=== PATIENT | female | born 1960 | race Caucasian/White ===

== ENCOUNTER → 2017-01-29 | Outpatient (CLI) | payer BC ==
[~2017-01-29] MED LIST: AMITRIPTYLINE H10 M1 PO; CALCIUM 600600 M2 PO; GUAIFENESI100 MG/51 PO; HCTZ 25MG25 MG PO; LIPITOR 10MG10 MG PO; LISINOPRIL/HCTZ1 TAB PO; MIRALAX17 GM/DOSE PO; PROTONIX 40MG T40 MG PO; VITAMIN B-1000 MCG/T PO
== END ==
LOC: MC.RAD 11:33
DX: Z12.31 Encounter for screening mammogram for malignant neoplasm of breast (principal); N63 Unspecified lump in breast

== ENCOUNTER → 2017-01-31 | Outpatient (CLI) | payer BC | LOC: MC.RAD 12:50 | DX: D48.62 Neoplasm of uncertain behavior of left breast (principal) ==

== ENCOUNTER → 2017-02-06 | Outpatient (CLI) | payer BC | LOC: MC.RAD 09:31 | DX: N60.02 Solitary cyst of left breast (principal) ==

== ENCOUNTER → 2018-02-08 | Outpatient (CLI) | payer BC | LOC: MC.RAD 09:58 | DX: Z12.31 Encounter for screening mammogram for malignant neoplasm of breast (principal) ==

== ENCOUNTER → 2019-02-11 | Outpatient (CLI) | payer BC | LOC: MC.RAD 16:15 | DX: Z12.31 Encounter for screening mammogram for malignant neoplasm of breast (principal) ==

== ENCOUNTER → 2020-01-19 | Outpatient (CLI) | payer BC | LOC: MC.RAD 09:40 | DX: Z12.31 Encounter for screening mammogram for malignant neoplasm of breast (principal); N64.89 Other specified disorders of breast; N60.02 Solitary cyst of left breast ==

== ENCOUNTER → 2020-01-23 | Outpatient (CLI) | payer BC | LOC: MC.RAD 10:27 | DX: N60.02 Solitary cyst of left breast (principal); N64.89 Other specified disorders of breast ==

== ENCOUNTER → 2021-05-31 | Outpatient (CLI) | payer BC | LOC: MC.RAD 11:26 | DX: Z12.31 Encounter for screening mammogram for malignant neoplasm of breast (principal) ==

== ENCOUNTER → 2022-06-01 | Outpatient (CLI) | payer BC | LOC: MC.RAD 09:02 | DX: Z12.31 Encounter for screening mammogram for malignant neoplasm of breast (principal) ==

== ENCOUNTER → 2024-06-19 | Outpatient (CLI) | payer MEDICARE | LOC: MC.RAD 10:30 | DX: Z12.31 Encounter for screening mammogram for malignant neoplasm of breast (principal) ==